=== PATIENT | female | born 1950 | race Caucasian/White ===

== ENCOUNTER 2016-09-15 12:58 | Day surgery (SDC) | payer OTHER ==
[~2016-09-15 12:58] MED LIST: MULT-65 PO
[2016-09-15 13:21] VITALS: BP 172/83; PULSE 93; RESP 20; TEMP 97.8; O2SAT 95
[2016-09-15] MEDS ORDERED: IOHEXOL 350 MG/ML 50 ML BTL (for RAD DIAG) IV ONE (14:13)
--- NOTE | 2016-09-15 14:35 | PD.RAD ---
Post Procedure Progress Note Pre Procedure Diagnosis: (1) Poorly functioning infusaport Post Procedure Diagnosis: (1) Poorly functioning infusaport Procedure Date: Sep 15, 2016 Supervising Radiologist: Melecio Bell Proceduralist/Assist: Christy Worthington, RT(R), Danni Núñez RT(R)() Plan of Activity Patient to Unit: ROPU Patient Condition: Good See PACS Report for procedural detail/treatment Central Venous Access Device Procedure 1 Left Subclavian Infusaport Evaluation single lumen Findings: Fibrin sheath at port tip. Locked with 2mg TPA Melecio Bell MD Sep 15, 2016 14:35
[2016-09-15] MEDS ORDERED: ALTEPLASE RECOMBINANT 2 MG VIAL IV FLUSH ONE (16:00)
[2016-09-15] MEDS ORDERED: Infusaport/Implanted VAD PRN NS Lock Flush IVF (16:00)
--- NOTE | 2016-09-16 16:25 | RADRPT ---
EXAM DATE/TIME: 09/15/2016 14:02 [place] COMPARISON: No previous studies available for comparison. INDICATIONS : Patient is in need of an evaluation of exisiting port due to sporadic blood return. 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 SURGICAL HISTORY : History of left port placeemnt, c-sexction, mammotome biopsy, parathyroidectomy, tubal ligation, blad lucita mass resection, bladder biopsy, cystoscopy, right lumpectomy with axillary lymph node dissection, left breast biopsy, resection of hemangioma of right temporoccipital bone. ENCOUNTER: Initial ACUITY: 4-6 months PAIN SCORE: 0/10 FLUORO TIME: 0.18 minutes 10 cc Omnipaque (iohexol) 350 ACCESS: Left internal jugular vein PROCEDURE : 1. Access of [id number]. 2. Port patency injection. The risks, benefits and alternatives to the procedure were explained and verbal and written consent w as obtained. The patient was placed supine. The port was prepped in sterile fashion. Full sterile t echnique was used, including cap, mask, sterile gloves and gown, and a large sterile sheet. Hand hyg iene and 2% chlorhexidine prep was utilized per protocol for cutaneous antisepsis with appropriate dr y time for site. The previously placed port was accessed and positive contrast was injected for evaluation. Injection demonstrates fibrin sheath the catheter tip. The port was otherwise patent. CONCLUSION: 1. Clinical symptoms of the result of a fibrin sheath at the catheter tip. 2. The catheter will be locked with 2 mg of TPA. This will be left to dwell for approximately 2 hours . Melecio Bell MD on September 16, 2016 at 16:22 Board Certified Radiologist. This report was verified electronically.
== END 2016-09-15 16:00 | disposition home or self-care (01) ==
LOC: HROP 12:58 → HRIP 13:03 → HROP 16:00
PROVIDERS: ATTEND Internal Medicine Hematology & Oncology
DX: Z45.2 Encounter for adjustment and management of vascular access device (principal); C79.51 Secondary malignant neoplasm of bone; C78.00 Secondary malignant neoplasm of unspecified lung; Z85.51 Personal history of malignant neoplasm of bladder
CPT/HCPCS: 36598; J1642; J2997; Q9967